=== PATIENT | female | born 1975 | race Caucasian/White ===

== ENCOUNTER → 2017-01-12 | Outpatient (CLI) | payer OTHER | LOC: FIMAGING 07:27 | DX: Z12.31 Encounter for screening mammogram for malignant neoplasm of breast (principal) | CPT/HCPCS: G0202 ==

== ENCOUNTER → 2017-06-06 | Outpatient (CLI) | payer OTHER | LOC: FIMAGING 07:35 | PROVIDERS: ATTEND Obstetrics & Gynecology | DX: O09.521 Supervision of elderly multigravida, first trimester (principal); O09.811 Supervision of pregnancy resulting from assisted reproductive technology, first trimester; E03.9 Hypothyroidism, unspecified; Z68.39 Body mass index [BMI] 39.0-39.9, adult; Z3A.12 12 weeks gestation of pregnancy ==

== ENCOUNTER → 2017-08-09 | Outpatient (CLI) | payer OTHER | LOC: FIMAGING 10:24 | PROVIDERS: ATTEND Obstetrics & Gynecology | DX: O09.522 Supervision of elderly multigravida, second trimester (principal); O09.812 Supervision of pregnancy resulting from assisted reproductive technology, second trimester; O99.282 Endocrine, nutritional and metabolic diseases complicating pregnancy, second trimester; E03.9 Hypothyroidism, unspecified; Z3A.21 21 weeks gestation of pregnancy ==

== ENCOUNTER 2017-12-04 10:18 | Observation (INO) | payer OTHER ==
--- NOTE | 2017-12-04 11:35 | PDGENHP ---
History & Physical Chief Complaint: Decreased FM History of Present Illness: Pt is 42 y/o @ 38 5/7 wks with LIO 12/16/17 by FET who presents with c/o no FM and then kick x 1. She states baby yoni is really usually active. Denies any LOF or VB. Irregular ctx's. Denies any HAs, visual changes or RUQ pain. Pt is scheduled for PCS 12/09 for malpresentation; also has borderline polyhydramnios. Pertinent Past, Social, Family History: POBhx: FT in 2012, PROM. PGYNHx: Menarche is 10 y/o. Cycles regular every 28 days x 3 days. Denies any h/o abn paps. Treated for chlamydia in 2004. PMHx: Infertility, AMA, Asthma-exercise induced, Hypothyroidisim. PSHx: Dislocated R shoulder, excision of benign tumor R ear. Meds: PNV, Synthroid. All: NKDA. SocHx: and lives with and their daughter; self-employed, she is a realtor. Fam Hx: h/o Factor V Leiden, Mother with hypothryoidism Relevant Physical Exam: WN, WD female in NAD. Alert and oriented x 3. Abd: soft, nt, gravid. Ext: without edema or calf tenderness, +2 reflexes. Pelvic: def Cardiorespiratory Assessment: A/P: 42 y/o @ 38 5/7 wks with c/o decreased FM. -Admit to L&D for observation. -NST reactive, Cat I with FHTs 140s. -BP elevated for pt 130/80's; she is asymptomatic at this time. -Pt stable for d/c home with PIH and labor precautions; discussed kick counts. -Pt to keep scheduled visit in am 12/04
--- NOTE | 2017-12-04 11:50 | OBPROG ---
Labor Progress Note Assessment/Plan: Assessment: Pt is 42 y/o @ 38 5/7 wks with c/o decreased FM Plan: Admit to L&D for observation NST done and reactive, Cat I with FHTs 140's BP elevated for pt at 130/80'd,; she is asymptomatic Scheduled for PCS 12/09 for malpresentation Pt reassured, discussed kick counts Stable for d/c home with PIH and labor precautions 12/04/17 11:46 Subjective/Intrapartum Course: 12/04/17 11:48 Pt presents with c/o decreased FM this am. At first felt no movement since waking up and then after calling our office, she noticed one kick. Denies any LOF or VB. She is having irreg ctx's. - Contraction Pattern Assessment Current Contraction Pattern: Other (Specify) (none) - FHR Assessment Cash FHR (bpm): 140 FHR Pattern Variability: Moderate FHR Category: 1 - Physical Exam General Appearance: WD/WN, alert, no apparent distress Abdomen: non-tender, soft, other (gravid) Extremities: non-tender, normal inspection DTR- Lower Extremities: Plantar (R): 2+, Plantar (L): 2+ Skin: normal color, warm/dry Neuro/Psych: alert, normal mood/affect, oriented x 3 Oxytocin Orders Assessment - Pre-Induction/Augmentation Assessment Gestational Age: 38 week(s) and 2 day(s) ICD10 Worksheet Patient Problems: Problems Problem Status Onset Decreased movement affecting , antepartum Acute - ICD10 Problem Qualifiers (1) Decreased movement affecting , antepartum
== END 2017-12-04 12:15 | disposition home or self-care (01) ==
LOC: FLD 10:18
PROVIDERS: ADMIT Obstetrics & Gynecology; ATTEND Obstetrics & Gynecology
DX: O36.8190 Decreased fetal movements, unspecified trimester, not applicable or unspecified (principal); O09.523 Supervision of elderly multigravida, third trimester; Z3A.38 38 weeks gestation of pregnancy
CPT/HCPCS: 59025; G0378

== ENCOUNTER 2017-12-09 07:30 | Inpatient (IN) | payer OTHER ==
--- NOTE | 2017-12-05 22:30 | GHP ---
[f rep st] PREOP HISTORY AND PHYSICAL DATE OF ADMISSION: 12/09/2017 Patient is slated for section on 12/09/2017 on the Obstetric Service. PREOPERATIVE HISTORY: Patient is a 42-year-old, G2, P1, at 39 weeks' gestation by IVF dating with fe sanjuanita embryo transfer on 03/20/2017, given estimated due date of 12/16/2017. Patient is scheduled for a section due to persistent footling breech presentation with polyhydramnios. The patient w as counseled as to attempting external cephalic version versus setting up a primary and the patient opted to proceed with a section and declined attempted version. The patient also i s desiring permanent sterilization. She had IVF with both of her pregnancies due to male factor infe rtility, but does not want to ever have to worry about control in the future. She is counseled about tubal ligation versus salpingectomy for cancer risk reduction and she does want to proceed wit h salpingectomies. The patient does understand that there is a 5% risk of menstrual cycle symptoms w orsening and reports that her periods were never difficult in the past. The patient was advised as t o risks and benefits of primary section and bilateral salpingectomies and signed the consent form. CARE: The patient has been followed with [facility] since transfer from [facility] ons. The patient had light spotting in the first trimester and was found to have a placenta previa. A followup ultrasound with maternal specialists at 21 weeks revealed that the previa had clear ed. The patient did not have any further issues with vaginal bleeding. Due to advanced maternal age , the patient also had a followup growth ultrasound at 30 weeks and was found have the 89th percentil e growth with breech presentation. Fluid level at that time was normal. With routine protocol, the patient has had fluid checks since 36 weeks, which have revealed the polyhydramnios and persistent br eech presentation. The patient has had NSTs for surveillance and these have been reactive. Th e patient presented to labor and delivery reporting decreased movement on 12/04, at which time she was noted to be borderline hypertensive. The blood pressures did improve and the patient was dis charged home. Her recheck on 12/05, revealed the blood pressures improved and PIH labs were checked and were normal with a normal P-to-C ratio. The patient has had headaches, but no other preeclamptic symptoms and mild edema. The patient has hypothyroidism and has been checked with stable labs throu gh the . A echo was performed and was reassuring. LABS: Include maternal blood type O positive with negative antibody screen, RPR nonreactive , rubella low immune, hepatitis B surface antigen negative, HIV negative. 1-hour Glucola initially w as elevated, but the patient repeated it in early second trimester and it was normal. A followup at 28 weeks was normal. Urinalysis and culture are within normal showing contamination. A Pap smear wa s normal. Patient declined genetic testing as she had preimplantation testing which was al l negative. MSAFP was negative. GBS culture was positive. Patient found to be anemic at 28 weeks w ith a hematocrit of 33% and a followup hematocrit was 36% after taking iron. [facility] labs revealed stabl e hematocrit at 36%. PAST MEDICAL HISTORY: Hypothyroidism on thyroid medicine. The dose has not been adjusted through . Exercised-induced asthma. Patient reports 3 half sisters have Factor V deficiency, but the patient reports that she was tested and was negative. PAST SURGICAL HISTORY: Benign tumor removed from the right ear and a dislocated right shoulder not r equiring surgery. PAST : In July 2012, a viable female delivered at 7 pounds 3 ounces at 39 weeks' gestati on after a vaginal with an epidural. That was also an IVF. ALLERGIES: No known drug allergies. CURRENT MEDICATIONS: Levothyroxine at 112 mcg daily. Vitamin D 2000 international units daily. Pre vitamins, low-dose aspirin daily, Diclegis through most of the . SOCIAL HISTORY: The patient is , lives with her and daughter. The patient is a nonsm oker. No alcohol or drug use. PHYSICAL EXAMINATION: GENERAL: At the time of preop patient is an obese white female in no physical distress, but very fatigued today. VITAL SIGNS: Weight 252 pounds. Blood pressure 122/74. Urine with trace protein and negative glucose. Patient is clinically afebrile. LUNGS: Clear to auscultat ion bilaterally. CARDIOVASCULAR: Regular rate and rhythm. ABDOMEN: Shows a fundal height of 40 cm . NST testing today revealed a baseline in the 150s with moderate variability and accelerations with reactive pattern. No contractions noted. PELVIC: Exam was deferred. EXTREMITIES: Show 1+ periph eral edema. ASSESSMENT: Intrauterine at 39 weeks on 12/09, scheduled for a primary section du e to footling breech presentation. Patient declined version attempt. Polyhydramnios. Undesired melany tility. Hypothyroidism. Obesity. Advanced maternal age. PLAN: The patient will present for primary section on 12/09. She will receive preoperative antibiotics and have on SCDs for the surgery and afterwards. Recommend rubella vaccination after th e delivery. We will continue her normal thyroid in the hospital. /[id number]/MODL
[2017-12-09] MEDS ORDERED: LR 500 ML IV ONE (08:38)
[2017-12-09] MEDS ORDERED: LR 1,000 ML IV SCH (08:38)
[2017-12-09] MEDS ORDERED: CITRIC ACID/SODIUM CITRATE 30 ML UDCUP PO ONE (08:38)
[2017-12-09] MEDS ORDERED: ceFAZolin 2 GM/DEXTROSE 100 ML IV ONE (08:38)
[2017-12-09 09:00] LABS: PLATELET COUNT 227 10^3/uL (150-400)
--- NOTE | 2017-12-09 10:29 | PDHPUP ---
History & Physical Update H&P update statement: This history and physical update is based on an assessment of the patient which was completed after admission or registration (within 24 hours), but prior to the surgery/procedure. H&P update: no change in patient's condition since H&P completed
--- NOTE | 2017-12-09 10:37 | PREANESOB ---
Obstetric Pre-Anesthesia Info - General Info Proposed Procedure: C Section : 2 Para: 1 LIO: 12/16/17 Gestational Age: 39 week(s) and 0 day(s) - Info Status: Full Term Monitors: External FHR Baseline (bpm): 140 FHR Pattern: Reassuring - Labor Status Indications for Current Section: Breech Labor Epidural: No Anesthesia ROS: negative. Allergies/Adverse Reactions: Allergy/AdvReac Type Severity Reaction Status Date / Time No Allergies [NKDA] Allergy Verified 12/04/17 11:31 Visit Medications: Generic Name Dose Route Start Last Admin Trade Name Freq PRN Reason Stop Dose Admin Lactated Ringer's 1,000 mls @ 125 mls/hr 12/09/17 08:38 Lr IV 12/10/17 08:37 CONT FRANKLIN Discontinued Medications Generic Name Dose Route Start Last Admin Trade Name Freq PRN Reason Stop Dose Admin Citric Acid/Sodium Citrate 30 ml 12/09/17 08:38 Bicitra PO 12/09/17 08:39 ONCALL ONE Cefazolin Sodium/Dextrose 100 mls @ 200 mls/hr 12/09/17 08:38 Ancef 2 Gm IV 12/09/17 09:07 ONCALL ONE Protocol Lactated Ringer's 500 mls @ 0 mls/hr 12/09/17 08:38 Lr IV 12/09/17 08:39 ONCE ONE As Directed - Anesthesia History Response to Local Anesthetics: Normal Anesthesia & Operative History: No Prior Problems Family Anesthesia History: Negative - Social History Substance Use/Abuse: Denies - Vital Signs Latest Vital Signs (Nursing): Temp Pulse Resp BP Pulse Ox 36.5 C 111 H 14 121/79 H 12/09/17 10:00 12/09/17 10:00 12/09/17 10:00 12/09/17 10:00 Blood Pressure: 121/79 Heart Rate: 111 Height/Weight (Nursing): Height 167.64 cm Weight 104.78 kg - Focused Exam Neck exam: FROM Mallampati Score: Class 1 Mouth exam: normal dental/mouth exam Pulmonary: no respiratory distress Cardiovascular: regular rate and rhythym Labs: 12/09/17 08:20 Patient ABO/Rh O POSITIVE 12/09/17 08:20 - Plan Anesthetic Plan: SAB Consent Signed and on Chart: Yes Patient/Guardian Understands and Agrees to Plan: Yes
[2017-12-09] MEDS ORDERED: PHENYLEPHRINE HCL 100 MCG/ML SYR ONE ×2 (10:42→11:53)
[2017-12-09] MEDS ORDERED: morphINE PF 5 MG/10 ML INJ ONE (10:42)
[2017-12-09] MEDS ORDERED: fentaNYL 100 MCG/2 ML INJ ONE (10:42)
[2017-12-09] MEDS ORDERED: OXYTOCIN 100 UNITS/10 ML VIAL ONE (11:12)
[2017-12-09] MEDS ORDERED: ONDANSETRON 4 MG/2 ML VIAL ONE ×2 (11:13)
[2017-12-09] MEDS ORDERED: DEXAMETHASONE 4 MG/ML VIAL ONE ×2 (11:13)
[2017-12-09] MEDS ORDERED: LACTULOSE 20 GM/30 ML UDCUP PO PRN (13:07)
[2017-12-09] MEDS ORDERED: MAGNESIUM HYDROXIDE 30 ML UDCUP PO PRN (13:07)
[2017-12-09] MEDS ORDERED: BISACODYL 10 MG SUPP PR PRN (13:07)
[2017-12-09] MEDS ORDERED: POLYETHYLENE GLYCOL 3350 17 GM PKT PO PRN (13:07)
--- NOTE | 2017-12-09 13:11 | OBDEL ---
Info Type: Primary Presentation at Delivery: Breech L&D Analgesia/Anesthesia Type: Spinal (with duramorph) GBS+: Yes (Ancef preop) Intrapartum Medications: Discontinued Medications Generic Name Dose Route Start Last Admin Trade Name Gio PRN Reason Stop Dose Admin Citric Acid/Sodium Citrate 30 ml 12/09/17 08:38 12/09/17 10:34 Bicitra PO 12/09/17 08:39 30 ml ONCALL ONE Administration Cefazolin Sodium/Dextrose 100 mls @ 200 mls/hr 12/09/17 08:38 12/09/17 10:35 Ancef 2 Gm IV 12/09/17 09:07 100 mls ONCALL ONE Administration Protocol - Care Provider Mri Supervisor/FRENCH FOLDER: Laura Angeles Operative Report - Delivery Pre-op Diagnoses: IUP at 39 wks, breech, undesired fertility Post-op Diagnoses: same, delivered History of Prior Section: No Nulliparous Prior to Delivery: No Indications for Current Section: Breech Procedure: Scheduled, Low Transverse, Other (Specify) (bilat salpingectomies) Surgeon: Maria A Bustamante Sports Book Writer: Vandana Johnson Anesthesiologist: Charli Mcnally Complications: Other (Specify) (footling breech) Findings: normal uterus, tubes and ovaries. Clear fluid upon AROM. left leg rotated very posteriorly. arms swept normally and very easy delivery of head. delayed cord clamping for 1 min. good tone of uterus after massage. 2 layer closure on uterus for hemostasis. left tube fimbria splayed out over ovary - teased off and removed completely but took added time for dissection. 4 sutures on vasc on left and 4 on right. right tube easily removed. 1 F8 on rectus muscle. tiffanie's fascia closed well. clear but concentrated UOP Specimen(s)/Path: Fallopian Tube(s) IV Fluid (ml): 3,900 EBL: 1000 [place] Data LIO: 12/16/17 Gestational Age: 39 week(s) and 0 day(s) Cash Delivery Date: 12/09/17 Delivery Time: 11:38 Score (1 Min): 8 Score (5 Min): 8 ICD10 Worksheet Patient Problems: Problems Problem Status Onset Status post bilateral salpingectomy Acute S/P primary low transverse Acute
--- NOTE | 2017-12-09 14:11 | POSTANESTH ---
Post Anesthetic Evaluation Cardiovascular Status: Normal, Stable, Similar to Pre-Op Cond Respiratory Status: Normal, Stable, Similar to Pre-op Cond. Level of Consciousness/Mental Status: Can Participate in Eval, Alert and Oriented Pain Control: Adequate, Prn Tx Ordered Nausea/Vomiting Control: Adequate, Prn Tx Ordered Complications Possibly Related to Anesthesia: None Noted
[2017-12-09] MEDS ORDERED: NALOXONE HCL 0.4 MG/ML INJ IVP PRN (14:22)
[2017-12-09] MEDS ORDERED: ONDANSETRON 4 MG/2 ML VIAL IVP PRN (14:22)
[2017-12-09] MEDS: KETOROLAC 30 MG/1 ML SDV IVP SCH ×2 (15:43→22:01)
--- NOTE | 2017-12-09 18:32 | OBPP ---
Progress Note Assessment/Plan: Assessment: POD 0 s/p primary c/s, BS - for breech doing well Plan: doing well - routine care 12/09/17 18:25 Subjective/ Course: 12/09/17 18:28 pt doing well - baby latching great, pain controlled well so far with Toradol. waves of mild nausea. tanisha water. hasn't been OOB yet. Objective: 12/09/17 08:20 Patient ABO/Rh O POSITIVE 12/09/17 08:20 Temp Pulse Resp BP Pulse Ox 36.5 C 71 16 107/74 99 12/09/17 17:10 12/09/17 17:10 12/09/17 17:10 12/09/17 17:10 12/09/17 17:10 Uterine Position/Fundal Height: Umbilicus -2 Uterine Tone: Firm Physical Exam - Physical Exam Abdomen: non-tender (approp post op tenderness), soft, dressing (CDI - no drainage) Extremities: non-tender, pedal edema (moderate) Skin: normal color, warm/dry Neuro/Psych: alert, normal mood/affect
[2017-12-09] MEDS: SENNOSIDES/DOCUSATE SODIUM TAB PO SCH (23:29)
[2017-12-10] MEDS: KETOROLAC 30 MG/1 ML SDV IVP SCH ×2 (04:25→10:46)
[2017-12-10] MEDS: LEVOTHYROXINE 112 MCG TAB PO SCH (06:39)
[2017-12-10] MEDS: SENNOSIDES/DOCUSATE SODIUM TAB PO SCH ×2 (10:49→20:14)
--- NOTE | 2017-12-10 13:03 | OBPP ---
Progress Note Assessment/Plan: Assessment: POD1 s/p PLTCS for breech. Routine advancements - doing well. VS stable, incision bandaged, can come off this AM. consult. Likely home tomorrow vs Tuesday. Laboratory Tests 06/01/17 11/21/17 12/09/17 11:40 Unknown 08:20 Hgb 13.1 Hct 39.2 Rubella IgG Antibody 13.50 Group B Strep DNA POSITIVE H Patient ABO/Rh 12/09/17 08:20 Hgb Hct Rubella IgG Antibody Group B Strep DNA Patient ABO/Rh O POSITIVE JM 12/10/17 17:13 Subjective/ Course: 12/09/17 18:28 pt doing well - baby latching great, pain controlled well so far with Toradol. waves of mild nausea. tanisha water. hasn't been OOB yet. 12/10/17 17:10 Indira is doing great this AM. Pain well controlled, BF going okay all things considered. Didn't get a lot of sleep last night with feedings. Objective: 12/09/17 08:20 Patient ABO/Rh O POSITIVE 12/09/17 08:20 Temp Pulse Resp BP Pulse Ox 37.0 C 80 16 97/61 L 95 12/10/17 08:00 12/10/17 08:00 12/10/17 08:00 12/10/17 08:00 12/10/17 08:00 Laboratory Results 12/09/17 08:20 Uterine Position/Fundal Height: At Umbilicus Uterine Tone: Firm
[2017-12-10] MEDS: HYDROCODONE/APAP 5/325 TAB PO PRN ×3 (15:48→21:42)
[2017-12-10] MEDS: IBUPROFEN 600 MG TAB PO PRN (20:15)
[2017-12-11] MEDS: IBUPROFEN 600 MG TAB PO PRN ×4 (02:00→21:23)
[2017-12-11] MEDS: HYDROCODONE/APAP 5/325 TAB PO PRN ×5 (02:00→22:26)
[2017-12-11] MEDS: LEVOTHYROXINE 112 MCG TAB PO SCH (05:32)
[2017-12-11] MEDS: SENNOSIDES/DOCUSATE SODIUM TAB PO SCH ×2 (08:38→21:24)
--- NOTE | 2017-12-11 14:02 | OBPP ---
Progress Note Assessment/Plan: Assessment: POD 2 s/p primary c/s, BS - for breech doing well Plan: doing well - routine care 12/09/17 18:25 12/11/17 13:59 Subjective/ Course: 12/09/17 18:28 pt doing well - baby latching great, pain controlled well so far with Toradol. waves of mild nausea. tanisha water. hasn't been OOB yet. 12/10/17 17:10 Indira is doing great this AM. Pain well controlled, BF going okay all things considered. Didn't get a lot of sleep last night with feedings. 12/11/17 14:00 Pt doing well - pain was more last noc but feels in good control now with 2 [place] q 4 hrs. and ibu. was able to amb and took shower. bld is light. urinating fine. baby has been latching fine but was more somnolent last noc Objective: 12/09/17 08:20 Patient ABO/Rh O POSITIVE 12/09/17 08:20 Temp Pulse Resp BP Pulse Ox 36.7 C 76 14 114/68 94 12/11/17 08:39 12/11/17 08:39 12/11/17 08:39 12/11/17 08:39 12/11/17 08:39 Uterine Position/Fundal Height: Umbilicus -1 Uterine Tone: Firm Physical Exam - Physical Exam Abdomen: non-tender (approp post op tenderness), soft, other (incision CDI, normal lochia) Extremities: non-tender, pedal edema (mild) Skin: normal color, warm/dry Neuro/Psych: alert, normal mood/affect
[2017-12-11] MEDS ORDERED: MEASLES,MUMPS&RUBELLA VACC/PF 0.5 ML VIAL SC ONE (14:16)
[2017-12-12] MEDS: IBUPROFEN 600 MG TAB PO PRN ×2 (04:39→11:51)
[2017-12-12] MEDS: HYDROCODONE/APAP 5/325 TAB PO PRN ×3 (04:40→15:18)
[2017-12-12] MEDS: LEVOTHYROXINE 112 MCG TAB PO SCH (04:45)
[2017-12-12 09:01] VITALS: BP 132/78
--- NOTE | 2017-12-12 11:45 | OBPP ---
Progress Note Assessment/Plan: Assessment: POD3 s/p PLTCS for breech. Routine advancements - doing well. Home today as long as baby gets dcd. Incision check 2 wks. Laboratory Tests 06/01/17 11/21/17 12/09/17 11:40 Unknown 08:20 Hgb 13.1 Hct 39.2 Rubella IgG Antibody 13.50 Group B Strep DNA POSITIVE H Patient ABO/Rh 12/09/17 08:20 Hgb Hct Rubella IgG Antibody Group B Strep DNA Patient ABO/Rh O POSITIVE JM 12/10/17 17:13 12/12/17 12:10 Subjective/ Course: 12/09/17 18:28 pt doing well - baby latching great, pain controlled well so far with Toradol. waves of mild nausea. tanisha water. hasn't been OOB yet. 12/10/17 17:10 Indira is doing great this AM. Pain well controlled, BF going okay all things considered. Didn't get a lot of sleep last night with feedings. 12/11/17 14:00 Pt doing well - pain was more last noc but feels in good control now with 2 [place] q 4 hrs. and ibu. was able to amb and took shower. bld is light. urinating fine. baby has been latching fine but was more somnolent last noc 12/12/17 12:10 Doing well - ready for home. Pain well controlled. Just waiting on final jamie number for baby, currently under light blanket. Objective: 12/09/17 08:20 Patient ABO/Rh O POSITIVE 12/09/17 08:20 Temp Pulse Resp BP Pulse Ox 36.2 C 79 18 132/78 H 97 12/12/17 09:00 12/11/17 20:00 12/12/17 09:00 12/12/17 09:00 12/12/17 09:00 Uterine Position/Fundal Height: At Umbilicus Uterine Tone: Firm (Incision CDI, Steri strips.)
--- NOTE | 2017-12-12 11:46 | OBGCSDC ---
General Delivery Information - General Info : 2 Para: 2 Abortions: 0 Type: Primary L&D Analgesia/Anesthesia Type: Spinal Admission Date: 12/09/17 Labs: Patient ABO/Rh O POSITIVE 12/09/17 08:20 Hct 39.2 % (38.0-47.0) 12/09/17 08:20 - Hospital Course : 12/09/17 18:28 pt doing well - baby latching great, pain controlled well so far with Toradol. waves of mild nausea. tanisha water. hasn't been OOB yet. 12/10/17 17:10 Indira is doing great this AM. Pain well controlled, BF going okay all things considered. Didn't get a lot of sleep last night with feedings. 12/11/17 14:00 Pt doing well - pain was more last noc but feels in good control now with 2 [place] q 4 hrs. and ibu. was able to amb and took shower. bld is light. urinating fine. baby has been latching fine but was more somnolent last noc - Delivery Providers Surgeon: Maria A Bustamante Supervisor [employer]: Vandana Johnson Anesthesiologist: Charli Mcnally - Delivery Indications for Current Section: Breech Surgical Procedures: Scheduled, Low Transverse, Other (Specify) (bilat salpingectomies) Intra-op Complications: Other (Specify) (footling breech) EBL: 1000 [place] Data LIO: 12/16/17 Gestational Age: 39 week(s) and 3 day(s) Cash Delivery Date: 12/09/17 Delivery Time: 11:38 Weight (gm): 3982 kg Score (1 Min): 8 Score (5 Min): 8 Discharge Information - Discharge Information Prescriptions: Hydrocodone/APAP 5/325 [[place] 5/325 (*)] 1 - 2 tab PO Q4HRS PRN #25 tab PRN Reason: Pain, Moderate Condition: Good Instruction/Follow Up: See Instruction Sheet, Two Weeks, Four Weeks, Six Weeks
[2017-12-12] MEDS: SENNOSIDES/DOCUSATE SODIUM TAB PO SCH (11:50)
== END 2017-12-12 17:00 | disposition home or self-care (01) | DRG 765 ==
LOC: FLD 07:30 → FOB 16:15
PROVIDERS: ADMIT Obstetrics & Gynecology; ATTEND Obstetrics & Gynecology
PROC: 0UT70ZZ Resection of Bilateral Fallopian Tubes, Open Approach (ICD-10-PCS; principal; 2017-12-09)
PROC: 10D00Z1 Extraction of Products of Conception, Low, Open Approach (ICD-10-PCS; principal; 2017-12-09)
DX: O32.1XX0 Maternal care for breech presentation, not applicable or unspecified (principal); Z37.0 Single live birth; Z3A.39 39 weeks gestation of pregnancy; O40.3XX0 Polyhydramnios, third trimester, not applicable or unspecified; O99.284 Endocrine, nutritional and metabolic diseases complicating childbirth; E03.9 Hypothyroidism, unspecified; O99.214 Obesity complicating childbirth; E66.9 Obesity, unspecified
CPT/HCPCS: J0690; J1100; J1885; J2274; J2370; J2405; J2590; J3010